=== PATIENT | male | born 1975 | race Caucasian/White ===

== ENCOUNTER 2025-06-13 04:33 | Inpatient (IN) | payer MEDICARE, OTHER ==
[~2025-06-13] VITALS: Ht 175.3 cm; Wt 78.2 kg
[~2025-06-13 04:33] MED LIST: AMPDEX30CR PO; AZIT250 PO; CEPH500 PO; HYDACE5 PO; LAMO100; LAMO100 PO
[2025-06-13 05:55] LABS: BASOPHILS ABSOLUTE AUTO 0.07 K/mm3 (0.00-0.23); BASOPHILS PERCENT AUTO 1 % (0-2); EOSINOPHILS ABSOLUTE AUTO 0.03 K/mm3 (0.00-0.68); EOSINOPHILS PERCENT AUTO 0 % (0-6); Hematocrit 53.4 % (37.0-53.0); Hemoglobin 17.1 g/dL (13.5-17.5); IMMATURE GRAN ABSOLUTE AUTO 0.02 K/mm3 (0.00-0.10); IMMATURE GRAN PERCENT AUTO 0 % (0-1); LYMPHOCYTES ABSOLUTE AUTO 2.56 K/mm3 (0.84-5.20); LYMPHOCYTES PERCENT AUTO 31 % (21-46); MONOCYTES ABSOLUTE AUTO 0.67 K/mm3 (0.16-1.47); MONOCYTES PERCENT AUTO 8 % (4-13); Mean Corpuscular HGB Conc 32.0 g/dL (31.5-36.5); Mean Corpuscular Volume 90 fL (80-100); NEUTROPHILS ABSOLUTE AUTO 4.86 K/mm3 (1.96-9.15); NEUTROPHILS PERCENT AUTO 59 % (41-73); NRBC ABSOLUTE 0.00 K/mm3 (0.00-0.02); NRBC Auto 0.0 /100 WBC (0.0-0.2); Platelet Count 227 K/mm3 (150-400); RDW Coefficient Variation 14.6 % (11.7-14.2); RDW Standard Deviation 48.0 fL (35.1-46.3)
[2025-06-13 06:08] LABS: Prothrombin Time Results 13.2 Sec (9.7-11.5)
[2025-06-13 06:14] LABS: Alanine Aminotransfer (ALT/SGP 62.0 U/L (12-78); Albumin, Blood 2.9 g/dL (3.4-5.0); Albumin/Globulin Ratio 0.7 (0.8-1.8); Anion Gap 10.0 mmol/L (3-11); Aspartate Aminotrans (AST/SGOT 50.0 U/L (12-37); Bilirubin, Total 1.0 mg/dL (0.1-1.0); Blood Urea Nitrogen 17.0 mg/dL (8-24); CO2, Blood 25.0 mmol/L (21-32); Calcium, Blood 8.7 mg/dL (8.5-10.1); Chloride, Blood 102.0 mmol/L (98-108); Creatinine, Blood 1.33 mg/dL (0.60-1.20); Globulin, Blood 4.0 g/dL (2.2-4.0); Glucose, Blood 205.0 mg/dL (70-99); Magnesium, Blood 1.8 mg/dL (1.6-2.4); Potassium, Blood 4.2 mmol/L (3.5-5.5); Sodium, Blood 133.0 mmol/L (136-145); Total Protein, Blood 6.9 g/dL (6.4-8.2)
[2025-06-13] MEDS ORDERED: Enoxaparin 40 MG/0.4 ML SYR SC SCH (09:00)
[2025-06-13 11:10] LABS: U Amphetamine Screen DETECTED; U Barbituate Screen Not Detected; U Benzodiazapine Screen Not Detected; U Buprenorphine Screen Not Detected; U Cannabinoids Screen DETECTED; U Cocaine Screen Not Detected; U Methadone Screen Not Detected; U Methamphetamine Screen DETECTED; U Opiates Screen Not Detected; U Oxycodone Screen Not Detected; U Phencyclidine Screen Not Detected
[2025-06-13 11:45] VITALS: BP 135/103
[2025-06-13] MEDS ORDERED: Furosemide 10 MG / ML 2ML Vial IV SCH (15:00)
[2025-06-13 16:04] VITALS: BP 126/98
--- NOTE | 2025-06-13 17:48 | NUR ---
SHIFT SUMMARY PT ADMITTED TODAY. PLEASANT & COOPERATIVE WITH CARE. ECHO CARDIOGRAM COMPLETED TODAY. ULTRASOUND OF ABD COMPLETED TODAY. PT STATES THAT HE IS "FEELING BETTER" AND IS "ABLE TO LAY DOWN FLAT FOR THE FIRST TIME IN AWHILE". PT EDUCATED ON CHF TODAY. ANXIOUS ABOUT DIAGNOSIS AND WHAT THAT MEANS FOR HIS FUTURE. THERAPUTIC LISTENTING COMPLETED BY RN AND REASSURED THAT WE NEED TO SEE WHAT THE REST OF HIS TESTS SHOW BEFORE WE KNOW WHAT HIS TREATMENT WILL LOOK LIKE ONCE DISCHARGED. PT STATES HE UNDERSTANDS AND IS THANKFUL FOR CARE. VS REVIEWED. CALL LIGHT IN REACH.
[2025-06-13] MEDS ORDERED: Dose Adjust by Pharmacy XX STA (18:22)
[2025-06-13] MEDS ORDERED: Heparin Sodium,Porcine/0.5 NS 500 ML IV SCH (18:25)
[2025-06-13] MEDS ORDERED: Heparin Sodium 5000 Units/ML 1ML MDV IV ONE (18:25)
[2025-06-13 20:26] VITALS: BP 127/103
[2025-06-13 23:43] VITALS: BP 128/90
[2025-06-14 01:15] LABS: BASOPHILS ABSOLUTE AUTO 0.08 K/mm3 (0.00-0.23); BASOPHILS PERCENT AUTO 1 % (0-2); EOSINOPHILS ABSOLUTE AUTO 0.07 K/mm3 (0.00-0.68); EOSINOPHILS PERCENT AUTO 1 % (0-6); Hematocrit 49.8 % (37.0-53.0); Hemoglobin 16.2 g/dL (13.5-17.5); IMMATURE GRAN ABSOLUTE AUTO 0.01 K/mm3 (0.00-0.10); IMMATURE GRAN PERCENT AUTO 0 % (0-1); LYMPHOCYTES ABSOLUTE AUTO 2.86 K/mm3 (0.84-5.20); LYMPHOCYTES PERCENT AUTO 35 % (21-46); MONOCYTES ABSOLUTE AUTO 0.67 K/mm3 (0.16-1.47); MONOCYTES PERCENT AUTO 8 % (4-13); Mean Corpuscular HGB Conc 32.5 g/dL (31.5-36.5); Mean Corpuscular Volume 88 fL (80-100); NEUTROPHILS ABSOLUTE AUTO 4.38 K/mm3 (1.96-9.15); NEUTROPHILS PERCENT AUTO 54 % (41-73); NRBC ABSOLUTE 0.00 K/mm3 (0.00-0.02); NRBC Auto 0.0 /100 WBC (0.0-0.2); Platelet Count 199 K/mm3 (150-400); RDW Coefficient Variation 14.6 % (11.7-14.2); RDW Standard Deviation 46.8 fL (35.1-46.3)
[2025-06-14 01:38] LABS: Alanine Aminotransfer (ALT/SGP 62.0 U/L (12-78); Albumin, Blood 2.5 g/dL (3.4-5.0); Albumin/Globulin Ratio 0.7 (0.8-1.8); Anion Gap 10.0 mmol/L (3-11); Aspartate Aminotrans (AST/SGOT 63.0 U/L (12-37); Bilirubin, Total 0.8 mg/dL (0.1-1.0); Blood Urea Nitrogen 19.0 mg/dL (8-24); CO2, Blood 27.0 mmol/L (21-32); Calcium, Blood 8.4 mg/dL (8.5-10.1); Chloride, Blood 102.0 mmol/L (98-108); Creatinine, Blood 1.27 mg/dL (0.60-1.20); Globulin, Blood 3.8 g/dL (2.2-4.0); Glucose, Blood 151.0 mg/dL (70-99); Potassium, Blood 3.7 mmol/L (3.5-5.5); Sodium, Blood 135.0 mmol/L (136-145); Total Protein, Blood 6.3 g/dL (6.4-8.2)
[2025-06-14] MEDS ORDERED: Dose Adjust by Pharmacy XX STA ×3 (02:07→18:24)
--- NOTE | 2025-06-14 03:38 | NUR ---
SHIFT SUMMARY ADMITTED FOR NEW ONSET CHF. FULL CODE. WE ARE DIURESING. HEPARIN DRIP INFUSING, PHARMACY IS MANAGING. TELEMETRY: NSR @ 97 BPM. PALLIATIVE CARE IS CONSULTED. HE IS ON RA, INDEPENDENT IN ROOM. A&O X4. 2G LOW NA+ DIET. ACHS CBG'S. 2,000 ML FLUID RESTRICTION. STRICT I&O'S. BLE EDEMA IS REPORTED TO BE IMPROVING.
[2025-06-14 03:51] VITALS: BP 134/87
[2025-06-14 07:18] VITALS: BP 116/95
[2025-06-14] MEDS ORDERED: Sacubitril/Valsartan 49 MG/51 MG Tab PO SCH (09:00)
[2025-06-14 11:06] VITALS: BP 130/101
[2025-06-14 15:59] VITALS: BP 125/105
--- NOTE | 2025-06-14 17:49 | NUR ---
SHIFT SUMMARY PT A&OX4, VSS, AMB W/ ASSIST DUE TO IV LINE, TOLERATING PO, VOIDING, AND DENIED PAIN. HEP INFUSING PER ORDER, DOSE ADJUSTED BY PHARMACY THIS SHIFT. BULLET MAKER CONSULTED, SEE CONSULT NOTE. PLAN TO CONT DIURESING. NO OTHER ACUTE CHANGES. CALL LIGHT WITHIN REACH AND PT ABLE TO MAKE NEEDS KNOWN.
[2025-06-14 19:28] VITALS: BP 87/64
[2025-06-14 19:32] VITALS: BP 101/75
[2025-06-14] MEDS ORDERED: Insulin Human Lispro 100 Units/ML 3ML Syringe SC SCH (21:00)
[2025-06-15] VITALS (7 sets, daily range): BP systolic 88–129; BP diastolic 68–117
[2025-06-15 01:04] LABS: BASOPHILS ABSOLUTE AUTO 0.09 K/mm3 (0.00-0.23); BASOPHILS PERCENT AUTO 1 % (0-2); EOSINOPHILS ABSOLUTE AUTO 0.09 K/mm3 (0.00-0.68); EOSINOPHILS PERCENT AUTO 1 % (0-6); Hematocrit 52.7 % (37.0-53.0); Hemoglobin 17.0 g/dL (13.5-17.5); IMMATURE GRAN ABSOLUTE AUTO 0.01 K/mm3 (0.00-0.10); IMMATURE GRAN PERCENT AUTO 0 % (0-1); LYMPHOCYTES ABSOLUTE AUTO 3.30 K/mm3 (0.84-5.20); LYMPHOCYTES PERCENT AUTO 39 % (21-46); MONOCYTES ABSOLUTE AUTO 0.77 K/mm3 (0.16-1.47); MONOCYTES PERCENT AUTO 9 % (4-13); Mean Corpuscular HGB Conc 32.3 g/dL (31.5-36.5); Mean Corpuscular Volume 91 fL (80-100); NEUTROPHILS ABSOLUTE AUTO 4.31 K/mm3 (1.96-9.15); NEUTROPHILS PERCENT AUTO 50 % (41-73); NRBC ABSOLUTE 0.00 K/mm3 (0.00-0.02); NRBC Auto 0.0 /100 WBC (0.0-0.2); Platelet Count 174 K/mm3 (150-400); RDW Coefficient Variation 14.3 % (11.7-14.2); RDW Standard Deviation 47.8 fL (35.1-46.3)
[2025-06-15 01:29] LABS: Alanine Aminotransfer (ALT/SGP 57.0 U/L (12-78); Albumin, Blood 2.6 g/dL (3.4-5.0); Albumin/Globulin Ratio 0.6 (0.8-1.8); Anion Gap 11.0 mmol/L (3-11); Aspartate Aminotrans (AST/SGOT 47.0 U/L (12-37); Bilirubin, Total 0.8 mg/dL (0.1-1.0); Blood Urea Nitrogen 22.0 mg/dL (8-24); CO2, Blood 27.0 mmol/L (21-32); Calcium, Blood 8.5 mg/dL (8.5-10.1); Chloride, Blood 99.0 mmol/L (98-108); Creatinine, Blood 1.36 mg/dL (0.60-1.20); Globulin, Blood 4.2 g/dL (2.2-4.0); Glucose, Blood 122.0 mg/dL (70-99); Potassium, Blood 3.8 mmol/L (3.5-5.5); Sodium, Blood 133.0 mmol/L (136-145); Total Protein, Blood 6.8 g/dL (6.4-8.2)
[2025-06-15] MEDS ORDERED: Clarify Drug Order XX ONE (02:25)
--- NOTE | 2025-06-15 04:50 | NUR ---
SHIFT SUMMARY ADMITTED FOR NEW ONSET CHF. FULL CODE. WE ARE DIURESING HIM. HEPARIN DRIP ONGOING. 2,000 ML FLUID RESTRICTION. STRICT I&O'S. TELEMETRY: NSR @ 86 BPM. A&O X4. INDEPENDENT. ON RA. 2G LOW NA+ DIET. CARDIOLOGY CONSULT IS DR. BECKER. NO NEW CONCERNS THIS SHIFT. HIS BLE EDEMA IS IMPROVING. ACHS CBG'S - LOW SS.
[2025-06-15] MEDS ORDERED: Dose Adjust by Pharmacy XX STA ×2 (08:05→13:59)
[2025-06-15] MEDS ORDERED: Furosemide 10 MG / ML 2ML Vial IV SCH ×2 (09:00→18:00)
[2025-06-15 13:52] LABS: Prothrombin Time Results 13.5 Sec (9.7-11.5)
--- NOTE | 2025-06-15 16:03 | NUR ---
THIS RN NOTIFIED ABOUT PT'S LOW BP. PT ASYMPTOMATIC AT THIS TIME. PROVIDER TO REVIEW MEDS.
[2025-06-15] MEDS ORDERED: Sacubitril/Valsartan 49 MG/51 MG Tab PO SCH (21:00)
[2025-06-16 00:38] VITALS: BP 116/86
[2025-06-16 04:27] VITALS: BP 110/85
[2025-06-16 06:04] LABS: BASOPHILS ABSOLUTE AUTO 0.07 K/mm3 (0.00-0.23); BASOPHILS PERCENT AUTO 1 % (0-2); EOSINOPHILS ABSOLUTE AUTO 0.19 K/mm3 (0.00-0.68); EOSINOPHILS PERCENT AUTO 3 % (0-6); Hematocrit 50.4 % (37.0-53.0); Hemoglobin 17.0 g/dL (13.5-17.5); IMMATURE GRAN ABSOLUTE AUTO 0.02 K/mm3 (0.00-0.10); IMMATURE GRAN PERCENT AUTO 0 % (0-1); LYMPHOCYTES ABSOLUTE AUTO 2.28 K/mm3 (0.84-5.20); LYMPHOCYTES PERCENT AUTO 36 % (21-46); MONOCYTES ABSOLUTE AUTO 0.68 K/mm3 (0.16-1.47); MONOCYTES PERCENT AUTO 11 % (4-13); Mean Corpuscular HGB Conc 33.7 g/dL (31.5-36.5); Mean Corpuscular Volume 88 fL (80-100); NEUTROPHILS ABSOLUTE AUTO 3.17 K/mm3 (1.96-9.15); NEUTROPHILS PERCENT AUTO 49 % (41-73); NRBC ABSOLUTE 0.00 K/mm3 (0.00-0.02); NRBC Auto 0.0 /100 WBC (0.0-0.2); Platelet Count 173 K/mm3 (150-400); RDW Coefficient Variation 14.2 % (11.7-14.2); RDW Standard Deviation 45.6 fL (35.1-46.3)
[2025-06-16 06:20] LABS: Prothrombin Time Results 13.0 Sec (9.7-11.5)
[2025-06-16 06:23] LABS: Magnesium, Blood 1.7 mg/dL (1.6-2.4)
[2025-06-16 06:24] LABS: Alanine Aminotransfer (ALT/SGP 50.0 U/L (12-78); Albumin, Blood 2.7 g/dL (3.4-5.0); Albumin/Globulin Ratio 0.7 (0.8-1.8); Anion Gap 7.0 mmol/L (3-11); Aspartate Aminotrans (AST/SGOT 42.0 U/L (12-37); Bilirubin, Total 0.8 mg/dL (0.1-1.0); Blood Urea Nitrogen 19.0 mg/dL (8-24); CO2, Blood 33.0 mmol/L (21-32); Calcium, Blood 8.7 mg/dL (8.5-10.1); Chloride, Blood 99.0 mmol/L (98-108); Creatinine, Blood 1.33 mg/dL (0.60-1.20); Globulin, Blood 4.1 g/dL (2.2-4.0); Glucose, Blood 165.0 mg/dL (70-99); Phosphorus, Blood 4.0 mg/dL (2.5-4.9); Potassium, Blood 3.6 mmol/L (3.5-5.5); Sodium, Blood 135.0 mmol/L (136-145); Total Protein, Blood 6.8 g/dL (6.4-8.2)
--- NOTE | 2025-06-16 06:27 | NUR ---
SHIFT SUMMARY PT A/Ox4, VSS ON RA. STRICT I/O MONITORED, DAILY WEIGHT. TELE IN PLACE, SINUS ARRYTHMIA. UP AD ENIO IN ROOM. PT APPEARED TO SLEEP WELL OVERNIGHT. HEPARIN DRIP CONTINUES. PT DENIES PAIN, NAUSEA, SOB. CALL LIGHT IN REACH, NO FURTHER NEEDS AT THIS TIME.
[2025-06-16 08:32] VITALS: BP 101/70
[2025-06-16] MEDS ORDERED: Furosemide 10 MG / ML 2ML Vial IV SCH (09:00)
[2025-06-16 15:40] VITALS: BP 91/78
--- NOTE | 2025-06-16 18:13 | NUR ---
PATIENT RESTED MOST OF DAY, AMBULATED WITH PT ONCE. PATIENT HR DROPS INTO THE 20-30'S WITH SLEEPING. PT AROUSES EASILY. MEDICATIONS GIVEN PER MAR,HELD LAST DOSE OF LASIX DUE TO HR AND SOFT BP. PER MD. CALL LIGHT WITHIN REACH, BED IN LOW POSITION.
[2025-06-16 20:06] VITALS: BP 119/91
[2025-06-16 23:39] VITALS: BP 114/82
[2025-06-16] MEDS ORDERED: Ondansetron HCl 2 MG / ML 2ML Vial IV PRN (23:50)
[2025-06-16] MEDS ORDERED: Ondansetron HCl 2 MG / ML 2ML Vial IV ONE (23:50)
[2025-06-17 03:49] VITALS: BP 104/80
[2025-06-17 05:33] LABS: BASOPHILS ABSOLUTE AUTO 0.05 K/mm3 (0.00-0.23); BASOPHILS PERCENT AUTO 1 % (0-2); EOSINOPHILS ABSOLUTE AUTO 0.09 K/mm3 (0.00-0.68); EOSINOPHILS PERCENT AUTO 1 % (0-6); Hematocrit 49.2 % (37.0-53.0); Hemoglobin 15.9 g/dL (13.5-17.5); IMMATURE GRAN ABSOLUTE AUTO 0.01 K/mm3 (0.00-0.10); IMMATURE GRAN PERCENT AUTO 0 % (0-1); LYMPHOCYTES ABSOLUTE AUTO 2.91 K/mm3 (0.84-5.20); LYMPHOCYTES PERCENT AUTO 44 % (21-46); MONOCYTES ABSOLUTE AUTO 0.75 K/mm3 (0.16-1.47); MONOCYTES PERCENT AUTO 11 % (4-13); Mean Corpuscular HGB Conc 32.3 g/dL (31.5-36.5); Mean Corpuscular Volume 88 fL (80-100); NEUTROPHILS ABSOLUTE AUTO 2.84 K/mm3 (1.96-9.15); NEUTROPHILS PERCENT AUTO 43 % (41-73); NRBC ABSOLUTE 0.00 K/mm3 (0.00-0.02); NRBC Auto 0.0 /100 WBC (0.0-0.2); Platelet Count 164 K/mm3 (150-400); RDW Coefficient Variation 14.5 % (11.7-14.2); RDW Standard Deviation 46.1 fL (35.1-46.3)
[2025-06-17 05:48] LABS: Prothrombin Time Results 13.1 Sec (9.7-11.5)
--- NOTE | 2025-06-17 05:54 | NUR ---
SHIFT SUMMARY PT A/Ox4, VSS ON RA. TELE MONITORING, NSR. STRICT I/Os, 2000ML FLUID RESTRICTION. DAILY STANDING WEIGHT 86.0 KG. ONE EPISODE NAUSEA, ZOFRAN EFFECTIVE. SAFETY PRECAUTIONS IN PLACE, CALL LIGHT IN REACH.
[2025-06-17 06:04] LABS: Alanine Aminotransfer (ALT/SGP 78.0 U/L (12-78); Albumin, Blood 2.8 g/dL (3.4-5.0); Albumin/Globulin Ratio 0.8 (0.8-1.8); Anion Gap 6.0 mmol/L (3-11); Aspartate Aminotrans (AST/SGOT 78.0 U/L (12-37); Bilirubin, Total 0.9 mg/dL (0.1-1.0); Blood Urea Nitrogen 20.0 mg/dL (8-24); CO2, Blood 30.0 mmol/L (21-32); Calcium, Blood 8.6 mg/dL (8.5-10.1); Chloride, Blood 101.0 mmol/L (98-108); Creatinine, Blood 1.31 mg/dL (0.60-1.20); Globulin, Blood 3.7 g/dL (2.2-4.0); Glucose, Blood 162.0 mg/dL (70-99); Potassium, Blood 4.1 mmol/L (3.5-5.5); Sodium, Blood 133.0 mmol/L (136-145); Total Protein, Blood 6.5 g/dL (6.4-8.2)
[2025-06-17 07:44] VITALS: BP 109/81
--- NOTE | 2025-06-17 09:48 | NUR ---
pt laying in bed awake a/ox4, pleasant and cooperative with care, follows commands well, denies pain, states he's feeling good, lungs are clear t/o, a bit dim in bases, resp even and unlabored, no cough noted, hrr, distant sounds, tele in place running sr in the 80's, +1 edema noted to b/l le, states was much worse when he came in, ppp+1, radial pulses strong, pivx2 to lfa and lw, sites are clear and patent, btx4 abd flat soft nontender, voids via urinal, skin c/w/d, maew, maida, call light in reach.
[2025-06-17] MEDS ORDERED: Dose Adjust by Pharmacy XX STA (12:57)
[2025-06-17 15:39] VITALS: BP 110/75
--- NOTE | 2025-06-17 18:10 | NUR ---
pt has been sleeping most of the day, did complain of a rash that appeared to his left chest wall, is red with surrounding spots, no other areas, notified Dr. Briscoe, he ordered miconozole cream, this was applied with some relief of the itching, heperin gtt stopped and started on coumadin, no further changes this shift. call light in reach.
[2025-06-17 19:37] VITALS: BP 101/70
[2025-06-17] MEDS ORDERED: Enoxaparin 80 MG/0.8 ML SYR SC SCH (21:00)
[2025-06-17] MEDS ORDERED: Miconazole Nitrate 28 GM CREAM..G. TOP SCH (21:00)
[2025-06-18] VITALS (7 sets, daily range): BP systolic 83–109; BP diastolic 64–84
[2025-06-18 05:35] LABS: BASOPHILS ABSOLUTE AUTO 0.04 K/mm3 (0.00-0.23); BASOPHILS PERCENT AUTO 1 % (0-2); EOSINOPHILS ABSOLUTE AUTO 0.09 K/mm3 (0.00-0.68); EOSINOPHILS PERCENT AUTO 1 % (0-6); Hematocrit 48.0 % (37.0-53.0); Hemoglobin 16.2 g/dL (13.5-17.5); IMMATURE GRAN ABSOLUTE AUTO 0.01 K/mm3 (0.00-0.10); IMMATURE GRAN PERCENT AUTO 0 % (0-1); LYMPHOCYTES ABSOLUTE AUTO 2.50 K/mm3 (0.84-5.20); LYMPHOCYTES PERCENT AUTO 38 % (21-46); MONOCYTES ABSOLUTE AUTO 0.74 K/mm3 (0.16-1.47); MONOCYTES PERCENT AUTO 11 % (4-13); Mean Corpuscular HGB Conc 33.8 g/dL (31.5-36.5); Mean Corpuscular Volume 88 fL (80-100); NEUTROPHILS ABSOLUTE AUTO 3.18 K/mm3 (1.96-9.15); NEUTROPHILS PERCENT AUTO 48 % (41-73); NRBC ABSOLUTE 0.00 K/mm3 (0.00-0.02); NRBC Auto 0.0 /100 WBC (0.0-0.2); Platelet Count 155 K/mm3 (150-400); RDW Coefficient Variation 14.6 % (11.7-14.2); RDW Standard Deviation 46.5 fL (35.1-46.3)
[2025-06-18 05:51] LABS: Prothrombin Time Results 13.3 Sec (9.7-11.5)
[2025-06-18 05:57] LABS: Anion Gap 9.0 mmol/L (3-11); Blood Urea Nitrogen 20.0 mg/dL (8-24); CO2, Blood 30.0 mmol/L (21-32); Calcium, Blood 8.8 mg/dL (8.5-10.1); Chloride, Blood 100.0 mmol/L (98-108); Creatinine, Blood 1.4 mg/dL (0.60-1.20); Glucose, Blood 146.0 mg/dL (70-99); Potassium, Blood 4.0 mmol/L (3.5-5.5); Sodium, Blood 135.0 mmol/L (136-145)
--- NOTE | 2025-06-18 06:34 | NUR ---
SHIFT SUMMARY PT A/Ox4, MORE RECEPTIVE TO EDUCATION ABOUT HEALTH STATUS AND AFTERCARE. VSS ON RA. BLACKJACK DEALER REPORTS 5 BEAT RUN OF PVCS AT 2230, ASYMPTOMATIC. STRICT I/Os TRACKED. 2000 ML FLUID RESTRICTION. ZOFRAN GIVEN FOR 1 EPISODE N/V. MONITORING NEW RASH AT L RIB CAGE/CHEST, MICONAZOLE EFFECTIVE AT THIS TIME.
--- NOTE | 2025-06-18 09:05 | NUR ---
Pt laying in bed with eyes closed, wakes enough to follow some commands then returns to sleep, lungs are clear in upper sultana, dim in bases, on r/a, resp even and unlabored, no cough noted, hrr, tele in place running sr per monitor, see strip, trace edema noted to b/l le, ppp faint, cap refill <3 sec, vs stable, afebrile, piv x2 to l and r fa's, clear and patent, btx4, abd flat soft nontender, voids without diff, skin has rash to lcw, is less red than yesterday, and less itchy, maida bustos, call light in reach.
--- NOTE | 2025-06-18 18:43 | NUR ---
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 no acute changes this shift. call light in reach.
--- NOTE | 2025-06-18 19:20 | NUR ---
REPORT GIVEN. PT ON THE PHONE TALKING TO HIS MOM. A/O, ABLE TO STATE NEEDS APPROPRIATELY. TELE IN PLACE. ON RA. WILL CONTINUE TO PROVIDE CARE T/O SHIFT. CALL LT IN REACH.
--- NOTE | 2025-06-18 22:28 | NUR ---
NOTIFIED HOSPITALIST FRANCOISE CORTEZ OF BP OF 93/64, MAP 73. PER FRANCOISE, HOLD ENTRESTO VALSARTAN TONIGHT D/T LOW BP.
--- NOTE | 2025-06-18 22:30 | NUR ---
PT QUIETLY RESTING ON RIGHT SIDE. RESP E/U ON RA. CALL LT IN REACH.
[2025-06-19] VITALS (7 sets, daily range): BP systolic 84–120; BP diastolic 60–94
--- NOTE | 2025-06-19 02:21 | NUR ---
PT RESTING QUIETLY ON LEFT SIDE. TELE IN PLACE. CALL LT IN REACH.
--- NOTE | 2025-06-19 06:12 | NUR ---
SHIFT SUMMARY: ALERT AND ORIENTED. ON RA. SINUS RHYTHDM 86 ONR TELE. NO COMPLAINTS OF CHEST PAIN OR NAUSEA. NO COMPLAINTS OF DIFFICULTY BREATHING. CBG 192 NO INSULIN GIVEN. RASH TO LEFT CHEST WALL IS BEING MANAGED BY MICONAZOLE CREAM, PT STATES IT HELPS WITH THE ITCHINESS. HAS SOME NUMBNESS IN BILAT TOES. ENTRESTO HELD FOR BP OF 83/94 PER HOSPITALIST. BLE EDEMA IS IMPROVING PER PT. NO ACUTE CHANGES. PT RESTED WELL T/O SHIFT. WILL CONTINUE TO PROVIDE CARE UNTIL SHIFT REPORT TO ONCOMING NURSE. CALL LT IN REACH.
[2025-06-19 07:29] LABS: Alanine Aminotransfer (ALT/SGP 63.0 U/L (12-78); Albumin, Blood 2.6 g/dL (3.4-5.0); Albumin/Globulin Ratio 0.7 (0.8-1.8); Anion Gap 8.0 mmol/L (3-11); Aspartate Aminotrans (AST/SGOT 39.0 U/L (12-37); Bilirubin, Total 0.6 mg/dL (0.1-1.0); Blood Urea Nitrogen 21.0 mg/dL (8-24); CO2, Blood 32.0 mmol/L (21-32); Calcium, Blood 8.9 mg/dL (8.5-10.1); Chloride, Blood 99.0 mmol/L (98-108); Creatinine, Blood 1.25 mg/dL (0.60-1.20); Globulin, Blood 3.9 g/dL (2.2-4.0); Glucose, Blood 147.0 mg/dL (70-99); Potassium, Blood 3.8 mmol/L (3.5-5.5); Prothrombin Time Results 16.3 Sec (9.7-11.5); Sodium, Blood 135.0 mmol/L (136-145); Total Protein, Blood 6.5 g/dL (6.4-8.2)
[2025-06-19] MEDS ORDERED: Magnesium Hydroxide Conc 10 ML UDC PO PRN (16:45)
--- NOTE | 2025-06-19 17:25 | NUR ---
SHIFT SUMMARY: A&OX4. PLEASANT AND COOPERATIVE WITH CARE. PT UP MULTIPLE TIMES THROUGHOUT SHIFT INDEPENDENTLY. PLAN TO POSSIBLY D/C TOMRROW AND TO BEGIN EDUCATION ON HOW TO SELF ADMINISTER LOVENOX INJECTIONS. PT MOTHER IN ROOM THROUGHOUT SHIFT. MEDICATED PER EMAR. LYING IN BED AT THIS TIME. BED LOCKED AND IN THE LOWEST POSITION. CALL LT WITHIN REACH. REMAINS ON TELEMETRY WITH NO EVENTS.
[2025-06-20 03:22] VITALS: BP 103/76
--- NOTE | 2025-06-20 05:27 | NUR ---
SHIFT SUMMARY A&OX4. ABLE TO MAKE ALL NEEDS KNOWN. REMAINS INDEPENDENT IN HIS ROOM. BP'S CONTINUE TO FLUCTUATE. PT HAD AN EPISODE OF BLURRED VISION IN LEFT EYE BUT ALL NEURO CHECK WNL AND IT QUICKLY RESOLVED. DISCUSSED WITH PLATE GLASS INSTALLER AND HAVE CONTINUED TO MONITOR. PT HAS NOT HAD ANY OTHER S/S. PT CURRENTLY SLEEPING IN BED AT LOWEST POSITION WITH CALL LIGHT WITHIN REACH.
[2025-06-20 05:31] LABS: BASOPHILS ABSOLUTE AUTO 0.05 K/mm3 (0.00-0.23); BASOPHILS PERCENT AUTO 1 % (0-2); EOSINOPHILS ABSOLUTE AUTO 0.16 K/mm3 (0.00-0.68); EOSINOPHILS PERCENT AUTO 2 % (0-6); Hematocrit 46.9 % (37.0-53.0); Hemoglobin 15.4 g/dL (13.5-17.5); IMMATURE GRAN ABSOLUTE AUTO 0.01 K/mm3 (0.00-0.10); IMMATURE GRAN PERCENT AUTO 0 % (0-1); LYMPHOCYTES ABSOLUTE AUTO 3.02 K/mm3 (0.84-5.20); LYMPHOCYTES PERCENT AUTO 44 % (21-46); MONOCYTES ABSOLUTE AUTO 0.68 K/mm3 (0.16-1.47); MONOCYTES PERCENT AUTO 10 % (4-13); Mean Corpuscular HGB Conc 32.8 g/dL (31.5-36.5); Mean Corpuscular Volume 87 fL (80-100); NEUTROPHILS ABSOLUTE AUTO 2.98 K/mm3 (1.96-9.15); NEUTROPHILS PERCENT AUTO 43 % (41-73); NRBC ABSOLUTE 0.00 K/mm3 (0.00-0.02); NRBC Auto 0.0 /100 WBC (0.0-0.2); Platelet Count 158 K/mm3 (150-400); RDW Coefficient Variation 14.2 % (11.7-14.2); RDW Standard Deviation 45.1 fL (35.1-46.3)
[2025-06-20 05:45] LABS: Prothrombin Time Results 21.7 Sec (9.7-11.5)
[2025-06-20 05:57] LABS: Anion Gap 8.0 mmol/L (3-11); Blood Urea Nitrogen 20.0 mg/dL (8-24); CO2, Blood 32.0 mmol/L (21-32); Calcium, Blood 8.8 mg/dL (8.5-10.1); Chloride, Blood 98.0 mmol/L (98-108); Creatinine, Blood 1.22 mg/dL (0.60-1.20); Glucose, Blood 121.0 mg/dL (70-99); Potassium, Blood 3.4 mmol/L (3.5-5.5); Sodium, Blood 135.0 mmol/L (136-145)
[2025-06-20 07:26] VITALS: BP 95/64
[2025-06-20 12:02] VITALS: BP 88/61
[2025-06-20] MEDS ORDERED: FURO40 PO (13:20)
[2025-06-20] MEDS ORDERED: POTA10T PO (13:21)
[2025-06-20] MEDS ORDERED: JARDIANCE10 MG PO (14:01)
[2025-06-20] MEDS ORDERED: DOCU100 PO (14:01)
[2025-06-20] MEDS ORDERED: METO50ER PO (14:02)
[2025-06-20] MEDS ORDERED: ENTRESTO 24 MG1 EAC2 (14:03)
[2025-06-20] MEDS ORDERED: SENNA LAXATIVE8.6 MG PO (14:04)
[2025-06-20] MEDS ORDERED: SPIR25 PO (14:05)
--- NOTE | 2025-06-20 14:20 | NUR ---
REVIEWED DISCHARGE INSRUCTIONS WITH PATIENT AND HIS MOM. REVIEWED FOLLOW UP APPOINTMENTS, PHONE NUMBERS AND MEDICATION CHANGE. PATIENT HAS NO CONCERNS OR QUESTIONS AT THIS TIME.
== END 2025-06-20 14:20 | disposition home or self-care (01) | DRG 292 ==
LOC: ER 04:33 → MEDS 08:34
PROVIDERS: Emergency Medicine; Student in an Organized Health Care Education/Training Program; ADMIT Family Medicine
DX: I50.21 Acute systolic (congestive) heart failure (principal); E87.1 Hypo-osmolality and hyponatremia; N17.9 Acute kidney failure, unspecified; I42.7 Cardiomyopathy due to drug and external agent; J98.11 Atelectasis; F90.9 Attention-deficit hyperactivity disorder, unspecified type; F15.10 Other stimulant abuse, uncomplicated; F31.9 Bipolar disorder, unspecified; I27.20 Pulmonary hypertension, unspecified; I50.82 Biventricular heart failure; I51.3 Intracardiac thrombosis, not elsewhere classified; K76.0 Fatty (change of) liver, not elsewhere classified; E11.65 Type 2 diabetes mellitus with hyperglycemia; Z79.899 Other long term (current) drug therapy; Z88.0 Allergy status to penicillin
CPT/HCPCS: 36415; 71045; 76705; 80048; 80053; 82947; 83036; 83735; 83880; 84100; 84300; 84443; 84484; 85025; 85610; 85730; 93005; 93010; 93970; 97161; 97165; 97530; 99285-25; A9270; C8929; J1644; J1650; J1938; J2405; Q9957

== ENCOUNTER 2025-06-23 18:42 | Emergency (ER) | payer MEDICARE, OTHER ==
[~2025-06-23] VITALS: Ht 175.3 cm; Wt 79.8 kg
[2025-06-23] MEDS ORDERED: Ondansetron HCl 2 MG / ML 2ML Vial IV PRN (18:50)
[2025-06-23 19:02] LABS: BASOPHILS ABSOLUTE AUTO 0.07 K/mm3 (0.00-0.23); BASOPHILS PERCENT AUTO 1 % (0-2); EOSINOPHILS ABSOLUTE AUTO 0.22 K/mm3 (0.00-0.68); EOSINOPHILS PERCENT AUTO 3 % (0-6); Hematocrit 46.5 % (37.0-53.0); Hemoglobin 15.2 g/dL (13.5-17.5); IMMATURE GRAN ABSOLUTE AUTO 0.01 K/mm3 (0.00-0.10); IMMATURE GRAN PERCENT AUTO 0 % (0-1); LYMPHOCYTES ABSOLUTE AUTO 3.25 K/mm3 (0.84-5.20); LYMPHOCYTES PERCENT AUTO 39 % (21-46); MONOCYTES ABSOLUTE AUTO 1.14 K/mm3 (0.16-1.47); MONOCYTES PERCENT AUTO 14 % (4-13); Mean Corpuscular HGB Conc 32.7 g/dL (31.5-36.5); Mean Corpuscular Volume 89 fL (80-100); NEUTROPHILS ABSOLUTE AUTO 3.72 K/mm3 (1.96-9.15); NEUTROPHILS PERCENT AUTO 44 % (41-73); NRBC ABSOLUTE 0.00 K/mm3 (0.00-0.02); NRBC Auto 0.0 /100 WBC (0.0-0.2); Platelet Count 175 K/mm3 (150-400); RDW Coefficient Variation 14.2 % (11.7-14.2); RDW Standard Deviation 46.4 fL (35.1-46.3)
[2025-06-23 19:25] LABS: Alanine Aminotransfer (ALT/SGP 50.0 U/L (12-78); Albumin, Blood 2.9 g/dL (3.4-5.0); Albumin/Globulin Ratio 0.7 (0.8-1.8); Anion Gap 8.0 mmol/L (3-11); Aspartate Aminotrans (AST/SGOT 55.0 U/L (12-37); Bilirubin, Total 0.5 mg/dL (0.1-1.0); Blood Urea Nitrogen 26.0 mg/dL (8-24); CO2, Blood 27.0 mmol/L (21-32); Calcium, Blood 9.1 mg/dL (8.5-10.1); Chloride, Blood 104.0 mmol/L (98-108); Creatinine, Blood 1.2 mg/dL (0.60-1.20); Globulin, Blood 4.1 g/dL (2.2-4.0); Glucose, Blood 176.0 mg/dL (70-99); Potassium, Blood 5.0 mmol/L (3.5-5.5); Sodium, Blood 134.0 mmol/L (136-145); Total Protein, Blood 7.0 g/dL (6.4-8.2)
== END 2025-06-23 23:10 | disposition home or self-care (01) ==
LOC: ER 18:42
PROVIDERS: Student in an Organized Health Care Education/Training Program
DX: R07.89 Other chest pain (principal); Z79.899 Other long term (current) drug therapy; Z88.0 Allergy status to penicillin; Z51.81 Encounter for therapeutic drug level monitoring; Z79.01 Long term (current) use of anticoagulants
CPT/HCPCS: 71046; 80053; 83690; 83880; 84484; 85025; 85610; 93005; 93010; 96374; 96375; 99285-25; J1938; J2405

== ENCOUNTER → 2025-06-23 | Outpatient (CLI) | payer MEDICARE, OTHER ==
[~2025-06-23] MED LIST changes: +DOCU100 PO; +ENTRESTO 24 MG1 EAC2; +FURO40 PO; +JARDIANCE10 MG PO; +METO50ER PO; +POTA10T PO; +SENNA LAXATIVE8.6 MG PO; +SPIR25 PO
[2025-06-23 10:29] LABS: Prothrombin Time Results 13.0 Sec (9.7-11.5)
== END | disposition home or self-care (01) ==
LOC: LAB SHORT 09:34 → LAB 09:34
PROVIDERS: Physician Assistant
DX: Z51.81 Encounter for therapeutic drug level monitoring (principal); Z79.01 Long term (current) use of anticoagulants
CPT/HCPCS: 85610